=== PATIENT | female | born 1975 ===

== ENCOUNTER 2022-11-01 17:09 | Emergency (ER) | payer BC ==
[~2022-11-01] VITALS: Ht 157.5 cm; Wt 59.4 kg
[2022-11-01 18:13] LABS: HEMATOCRIT 26.9 % (31.2-41.9); MEAN CORPUSCULAR HEMOGLOBIN 24.5 uug (24.7-32.8); MEAN CORPUSCULAR VOLUME 75.3 fL (75.5-95.3); PLATELET COUNT (AUTO) 411 K/uL (179-408)
[2022-11-01 18:24] LABS: CARBON DIOXIDE 27 mmol/L (21-32); CHLORIDE 104 mmol/L (98-107); CREATININE 0.6 mg/dL (0.6-1.3); GLUCOSE 117 mg/dL (74-106); POTASSIUM 3.8 mmol/L (3.5-5.1); UREA NITROGEN, BLOOD 11 mg/dL (7-18)
[2022-11-01 18:33] LABS: ALANINE AMINOTRANSFERASE 18 U/L (14-59); ALKALINE PHOSPHATASE 61 U/L (50-136); ASPARTATE AMINOTRANSFERASE 12 U/L (15-37); BILIRUBIN,DIRECT 0.1 mg/dL (0.0-0.2); BILIRUBIN,TOTAL 0.2 mg/dL (0.2-1.0)
[2022-11-01] MEDS ORDERED: LORAZEPAM 0.5 MG TABLET PO ONE (18:45)
[2022-11-01] MEDS ORDERED: IBUPROFEN 600 MG TABLET PO ONE (18:45)
[2022-11-01] MEDS ORDERED: IBUP-1490 PO (18:47)
[2022-11-01 19:05] VITALS: BP 122/82
[2022-11-01] MEDS ORDERED: IBUPROFEN 600 MG TABLET ONE (19:10)
[2022-11-01] MEDS ORDERED: LORAZEPAM 0.5 MG TABLET ONE (19:10)
== END 2022-11-01 19:17 | disposition home or self-care (01) ==
LOC: ER 18:02
DX: M94.0 Chondrocostal junction syndrome [Tietze] (principal); D64.9 Anemia, unspecified; R07.9 Chest pain, unspecified; R94.31 Abnormal electrocardiogram [ECG] [EKG]
CPT/HCPCS: 36415; 71045; 83690; 84484; 85025; 93005; A4663